=== PATIENT | male | born 1935 | race Caucasian/White ===

== ENCOUNTER 2016-11-21 00:14 | Day surgery (SDC) | payer MEDICARE ==
[~2016-11-21] VITALS: Ht 182.9 cm; Wt 81.7 kg
[~2016-11-21 00:14] MED LIST: AMLO5TAB2 PO; ASPI-973 PO; ATEN25TA PO; DIPH25CA6 PO; IBUP200C PO; LIP40 PO; MAGN250T29 PO; NITR0.4T6 SL; RANI150C4 PO; VIT1TABL83 PO
[2016-11-21] MEDS ORDERED: 0.9% Sodium Chloride 1,000 ML IV SCH (06:00)
[2016-11-21] MEDS ORDERED: Lactated Ringer's 1,000 ML IV ONE (06:00)
[2016-11-21] MEDS ORDERED: fentaNYL-PF 50 mCg/mL 2 mL Inj IVPUSH PRN (06:00)
[2016-11-21] MEDS ORDERED: Sodium Chloride LOK Flush 10 mL Syringe IV PRN (06:00)
[2016-11-21 13:37] VITALS: BP 127/81; PULSE 55; RESP 14; O2SAT 98
[2016-11-21 14:24] VITALS: BP 123/79; PULSE 60; RESP 16; O2SAT 95
[2016-11-21 14:33] VITALS: BP 127/63; PULSE 56; RESP 16; O2SAT 94
[2016-11-21 14:43] VITALS: BP 127/63; PULSE 62; RESP 16; O2SAT 98
--- NOTE | 2016-11-21 14:50 | ENDO ---
[address] [address] ENDOSCOPY PROCEDURE PATIENT: MARC ZIMMER : 1935 MR#: [id number] ADMIT: 11/21/2016 JOB ID: [id number] DATE: 11/21/2016 PRE-PROCEDURE DIAGNOSIS: Distal esophageal web. POST-PROCEDURE DIAGNOSIS: Distal esophageal web. PROCEDURE: Esophagogastroduodenoscopy with balloon dilation of distal esophageal web. ENDOSCOPIST: Dr. Brice Lucas. MEDICATIONS: 1. Versed 5 mg. 2. Fentanyl 75 mcg. INDICATIONS: The patient is an 81-year-old man who underwent esophagogastroduodenoscopy in December of 2015 for intermittent dysphagia. At that time he had a distal esophageal web and biopsies of that showed normal squamous epithelium, no evidence of Cantu's or dysplasia. He remains on Zantac with control of his symptoms and has not had any severe episodes of dysphagia but has had mild intermittent dysphagia. After discussion of risks and benefits, he agreed to proceed with repeat upper endoscopy with balloon dilation of distal esophageal web. FINDINGS: There was a web in the distal esophagus, but no evidence of Cantu's or other new mucosal abnormalities. The esophagogastric junction was at 42 cm from the incisors. There were no gastric or duodenal ulcers. DESCRIPTION OF PROCEDURE: Procedural sedation was achieved. A bite block was introduced. A lidocaine swish and swallow was used prior to sedation. He was connected to hemodynamic monitoring, pulse oximetry, capnography. The GIF H 180 J gastroscope was introduced through the mouth and passed under visualization to the second portion of the duodenum. The duodenum was normal. The scope was withdrawn into the stomach and retroflexed. There was a grade 1 esophagogastric flap valve. There was no significant gastritis. There were no gastric ulcers. The EG junction was present at 42 cm from the incisors with no significant hiatal hernia. There was a distal esophageal web upon initial insertion of the scope and actually upon withdrawing of the scope into the distal esophagus, there was a small amount of blood consistent with partial dilation of the webbed simply by that the scope alone. There was no evidence of Cantu esophagus. Biopsies were not taken this time because of plan for dilation. The 12-15 mm balloon was initially inserted under visualization across the esophagogastric junction. It was inflated under visualization and despite maximal inflation at 15 mm, the balloon still moved through the esophagogastric junction without significant friction. The balloon was deflated and removed. The larger size was selected at 18-20 mm. That balloon was inserted under visualization and positioned across the esophagogastric junction. The balloon was inflated to 18 mm, then 19 mm, and finally to 20 mm. At 20 mm there was some friction across the esophagogastric junction but it did not appear unnecessarily tight. Pressure at 20 mm was 6 atmospheres. It was held in this position for 60 seconds. The balloon was then deflated and withdrawn. Inspection of the esophagogastric junction revealed a small amount of blood, but no evidence of mucosal tear or other abnormalities. The scope was withdrawn and the procedure terminated. He tolerated the entire procedure well. RECOMMENDATIONS: I recommend a soft diet for 48 hours. After that, he can resume a normal diet. He can followup on an as-needed basis for repeat dilation only if he develops recurrent dysphagia.
== END 2016-11-21 23:59 | disposition home or self-care (01) ==
LOC: END 00:14
PROVIDERS: ATTEND Student in an Organized Health Care Education/Training Program
DX: Q39.4 Esophageal web (principal); I25.10 Atherosclerotic heart disease of native coronary artery without angina pectoris; I12.9 Hypertensive chronic kidney disease with stage 1 through stage 4 chronic kidney disease, or unspecified chronic kidney disease; R00.1 Bradycardia, unspecified; K57.30 Diverticulosis of large intestine without perforation or abscess without bleeding; K21.9 Gastro-esophageal reflux disease without esophagitis; N18.9 Chronic kidney disease, unspecified; Z95.5 Presence of coronary angioplasty implant and graft; Z85.46 Personal history of malignant neoplasm of prostate; Z79.82 Long term (current) use of aspirin
CPT/HCPCS: 43249; G0500; J2250; J3010; J7030